=== PATIENT | female | born 1940 | race Caucasian/White ===

== ENCOUNTER 2018-10-26 09:23 | Day surgery (SDC) | payer MEDICARE, OTHER ==
[~2018-10-26 09:23] MED LIST: RINGERS SOLUTION,LACTATED 500 ML IV ONE; TETRACAINE HCL/PF 0.5% 4 ML OPHTHALMIC SOLUTION OS ONE
[2018-10-26] MEDS ORDERED: HYALURONATE SODIUM 12 MG/ML 0.8 ML SYRINGE IO ONE (09:24)
[2018-10-26] MEDS ORDERED: POVIDONE-IODINE 10% 15 ML SOLUTION UD TP ONE (09:24)
[2018-10-26] MEDS ORDERED: HYALURONATE SOD/CHONDROITIN SOD 0.5 ML VIAL IO ONE (09:24)
[2018-10-26] MEDS ORDERED: EPINEPHrine 1:1,000 [1 MG/ML] AMP IM ONE (09:24)
[2018-10-26] MEDS ORDERED: LIDOCAINE/PF 1% 2 ML VIAL IARTIC ONE (09:24)
[2018-10-26] MEDS ORDERED: RINGERS SOLUTION,LACTATED 500 ML IV ONE (09:36)
[2018-10-26] MEDS ORDERED: TROPICAMIDE 1% 2 ML OPHTHALMIC SOLUTION ONE (09:36)
[2018-10-26] MEDS ORDERED: TETRACAINE HCL/PF 0.5% 4 ML OPHTHALMIC SOLUTION ONE (09:36)
[2018-10-26] MEDS ORDERED: FLURBIPROFEN SODIUM 0.03% 2.5 ML OPHTHALMIC SOLUTION ONE (09:36)
[2018-10-26] MEDS ORDERED: OFLOXACIN 0.3% 5 ML OPHTHALMIC SOLUTION ONE (09:36)
[2018-10-26] MEDS ORDERED: CYCLOPENTOLATE HCL 1% 2 ML OPHTHALMIC SOLUTION ONE (09:37)
[2018-10-26] MEDS ORDERED: PHENYLEPHRINE HCL 2.5% 2 ML OPHTHALMIC SOLUTION ONE (09:37)
[2018-10-26] MEDS: OFLOXACIN 0.3% 5 ML OPHTHALMIC SOLUTION OS SCH ×3 (10:24→10:37)
[2018-10-26] MEDS: PHENYLEPHRINE HCL 2.5% 2 ML OPHTHALMIC SOLUTION OS SCH ×3 (10:24→10:38)
[2018-10-26] MEDS: FLURBIPROFEN SODIUM 0.03% 2.5 ML OPHTHALMIC SOLUTION OS SCH ×3 (10:24→10:38)
[2018-10-26] MEDS: TROPICAMIDE 1% 2 ML OPHTHALMIC SOLUTION OS SCH ×3 (10:24→10:38)
[2018-10-26] MEDS: CYCLOPENTOLATE HCL 1% 2 ML OPHTHALMIC SOLUTION OS SCH ×3 (10:24→10:38)
[2018-10-26 10:44] LABS: GLUCOMETER DEV NAME(LOC) SDS.; GLUCOSE,POINT OF CARE 91 MG/DL (70-110)
[2018-10-26] MEDS ORDERED: ASPI81 PO (10:59)
[2018-10-26] MEDS ORDERED: LEVO5TAB13 PO (10:59)
[2018-10-26] MEDS ORDERED: VITAD1000 PO (10:59)
[2018-10-26] MEDS ORDERED: NIAC500C3 PO (10:59)
[2018-10-26] MEDS ORDERED: METF-960 PO (10:59)
[2018-10-26] MEDS ORDERED: MULT1CAP32 PO (10:59)
[2018-10-26] MEDS ORDERED: AMLO10TA7 PO (10:59)
[2018-10-26] MEDS ORDERED: LOSA50TA64 PO (10:59)
[2018-10-26] MEDS ORDERED: ATOR10TA84 PO (10:59)
[2018-10-26] MEDS ORDERED: OS500 PO (10:59)
[2018-10-26] MEDS ORDERED: FentaNYL CITRATE-PF 100 MCG/2 ML VIAL IVP ONE (12:00)
[2018-10-26] MEDS ORDERED: MIDAZOLAM HCL 2 MG/2 ML VIAL IVP ONE (12:00)
== END 2018-10-26 13:50 | disposition home or self-care (01) ==
LOC: SURGERY 09:23
PROVIDERS: ATTEND Ophthalmology
DX: E11.36 Type 2 diabetes mellitus with diabetic cataract (principal); H25.12 Age-related nuclear cataract, left eye; M19.90 Unspecified osteoarthritis, unspecified site; H35.3131 Nonexudative age-related macular degeneration, bilateral, early dry stage; H04.123 Dry eye syndrome of bilateral lacrimal glands; I10 Essential (primary) hypertension; E78.00 Pure hypercholesterolemia, unspecified; Z88.8 Allergy status to other drugs, medicaments and biological substances; Z90.710 Acquired absence of both cervix and uterus
CPT/HCPCS: 66984; 82962; 93005; C1780; J0171; J2250; J3010; J3490 ×2; J7120

== ENCOUNTER 2020-03-07 07:21 | Day surgery (SDC) | payer MEDICARE, OTHER ==
[2020-03-05 10:44] LABS: COVID AG,FIA SOURCE NASOPHARYNGEAL
[~2020-03-07] VITALS: Ht 154.9 cm; Wt 53.6 kg
[~2020-03-07 07:21] MED LIST changes: +AMLO-258 PO; +ASPI-728 PO; +ATOR10TA84 PO; +CHOL100018 PO; +LEVO5TAB13 PO; +LOSA50TA37 PO; +METF-960 PO; +MULT1CAP32 PO; +NIAC500C3 PO; +OS500 PO; -RINGERS SOLUTION,LACTATED 500 ML IV ONE; -TETRACAINE HCL/PF 0.5% 4 ML OPHTHALMIC SOLUTION OS ONE
[2020-03-07] MEDS ORDERED: MOXIFLOXACIN HCL 0.5% 3 ML OPHTHALMIC SOLUTION ONE (08:21)
[2020-03-07] MEDS ORDERED: TROPICAMIDE 1% 2 ML OPHTHALMIC SOLUTION ONE (08:21)
[2020-03-07] MEDS ORDERED: KETOROLAC TROMETHAMINE 0.5% 5 ML OPHTHALMIC SOLUTION ONE (08:21)
[2020-03-07] MEDS ORDERED: RINGERS SOLUTION,LACTATED 500 ML IV ONE ×2 (08:21→10:00)
[2020-03-07] MEDS ORDERED: PHENYLEPHRINE HCL 2.5% 2 ML OPHTHALMIC SOLUTION ONE (08:22)
[2020-03-07] MEDS: PHENYLEPHRINE HCL 2.5% 2 ML OPHTHALMIC SOLUTION OD SCH ×3 (08:55→09:10)
[2020-03-07] MEDS: TROPICAMIDE 1% 2 ML OPHTHALMIC SOLUTION OD SCH ×3 (08:56→09:10)
[2020-03-07] MEDS: MOXIFLOXACIN HCL 0.5% 3 ML OPHTHALMIC SOLUTION OD SCH ×3 (08:56→09:10)
[2020-03-07] MEDS: KETOROLAC TROMETHAMINE 0.5% 5 ML OPHTHALMIC SOLUTION OD SCH ×3 (08:56→09:10)
[2020-03-07] MEDS ORDERED: TETRACAINE HCL/PF 0.5% 4 ML OPHTHALMIC SOLUTION ONE (11:22)
[2020-03-07] MEDS ORDERED: POVIDONE-IODINE 10% 15 ML SOLUTION UD ONE (11:22)
[2020-03-07] MEDS ORDERED: LIDOCAINE/PF 1% 2 ML VIAL ONE (11:22)
[2020-03-07] MEDS ORDERED: EPINEPHrine 1:1,000 [1 MG/ML] AMP ONE (11:22)
[2020-03-07] MEDS ORDERED: HYALURONATE SOD/CHONDROITIN SOD 0.5 ML VIAL IO ONE (11:22)
[2020-03-07] MEDS ORDERED: HYALURONATE SODIUM 12 MG/ML 0.8 ML SYRINGE IO ONE (11:22)
[2020-03-07] MEDS ORDERED: MIDAZOLAM HCL 2 MG/2 ML VIAL IVP ONE (12:00)
[2020-03-07] MEDS ORDERED: FentaNYL CITRATE-PF 100 MCG/2 ML VIAL IVP ONE (12:00)
== END 2020-03-07 12:45 | disposition home or self-care (01) ==
LOC: SURGERY 07:21
PROVIDERS: ATTEND Ophthalmology
DX: E11.36 Type 2 diabetes mellitus with diabetic cataract (principal); H25.11 Age-related nuclear cataract, right eye; E78.00 Pure hypercholesterolemia, unspecified; I48.91 Unspecified atrial fibrillation; I10 Essential (primary) hypertension; M19.90 Unspecified osteoarthritis, unspecified site; Z79.82 Long term (current) use of aspirin; Z79.899 Other long term (current) drug therapy; Z98.890 Other specified postprocedural states; Z20.828 Contact with and (suspected) exposure to other viral communicable diseases
CPT/HCPCS: 66984; 87426; 93005; C9803; J0171; J2250; J3010; J3490 ×2; J7120; V2632